=== PATIENT | male | born 1945 | race Caucasian/White ===

== ENCOUNTER → 2017-04-03 | Outpatient (CLI) | payer OTHER ==
[2017-04-03 11:42] LABS: INR 1.01; PROTHROMBIN TIME 13.4 SECONDS (12.4-14.5)
[2017-04-03 11:43] LABS: PARTIAL THROMBOPLASTIN TIME 28.6 SECONDS (26.8-37.9)
== END ==
LOC: M LAB 10:45
DX: D37.030 Neoplasm of uncertain behavior of the parotid salivary glands (principal); Z79.899 Other long term (current) drug therapy
CPT/HCPCS: 85610

== ENCOUNTER → 2017-04-10 | Outpatient (CLI) | payer OTHER ==
[~2017-04-10] MED LIST: LIDOCAINE 1% MDV 20ML VIAL As Ordered
== END ==
LOC: M RADPRO 10:55
DX: D37.030 Neoplasm of uncertain behavior of the parotid salivary glands (principal); Z79.899 Other long term (current) drug therapy
CPT/HCPCS: 10022

== ENCOUNTER 2017-11-30 05:36 | Day surgery (SDC) | payer OTHER ==
[2017-11-30] MEDS: LR 1,000 ML IV (06:40)
[2017-11-30] MEDS ORDERED: LIDOCAINE 2% INJ 100 MG/5 ML SDV (FOR ANES.) As Ordered ×2 (07:11→09:32)
[2017-11-30] MEDS ORDERED: MIDAZOLAM INJ 2 MG/2 ML VIAL (J2250) As Ordered (07:11)
[2017-11-30] MEDS ORDERED: PROPOFOL 200 MG/20 ML VIAL As Ordered (07:11)
[2017-11-30] MEDS ORDERED: ROCURONIUM BROMIDE 50 MG/5 ML VIAL As Ordered (07:11)
[2017-11-30] MEDS ORDERED: fentaNYL 250 MCG/5 ML INJECTION (J3010) As Ordered (07:11)
[2017-11-30] MEDS: dexameTHASONE 4 MG/ML 1ML VIAL (J1100) IV (07:45)
[2017-11-30] MEDS ORDERED: GLYCOPYRROLATE INJ 0.2 MG/ML 2 ML VIAL As Ordered ×2 (07:54→09:54)
[2017-11-30] MEDS ORDERED: ePHEDrine SULFATE 25 MG/5 ML(5MG/ML) SYRINGE As Ordered (07:56)
[2017-11-30] MEDS ORDERED: PHENYLephrine HCL 500 MCG/5 ML (100MCG/ML) SYRINGE (J2370) As Ordered ×2 (07:56→09:48)
[2017-11-30] MEDS ORDERED: LABETALOL HCL 100 MG/20 ML VIAL As Ordered (09:00)
[2017-11-30] MEDS ORDERED: NEOSTIGMINE 10 MG/10 ML VIAL (J2710) As Ordered ×2 (09:10→09:11)
[2017-11-30] MEDS ORDERED: ONDANSETRON 4MG/2ML VIAL (J2405) As Ordered (09:10)
[2017-11-30] MEDS: LIDOCAINE W/EPINEPHRINE 1% 20ML VIAL As Ordered (10:01)
[2017-11-30] MEDS: BACITRACIN OINT 30GM As Ordered (10:12)
[2017-11-30] MEDS ORDERED: LR 1,000 ML IV ×2 (11:30→11:45)
[2017-11-30] MEDS ORDERED: fentaNYL 100 MCG/2 ML INJECTION (J3010) IV (11:45)
[2017-11-30] MEDS ORDERED: METOCLOPRAMIDE INJ 10MG/2ML VIAL (J2765) IV (11:45)
[2017-11-30] MEDS ORDERED: PERCOCET 5MG/325MG TAB PO (11:45)
[2017-11-30] MEDS ORDERED: ONDANSETRON 4MG/2ML VIAL (J2405) IV (11:45)
[2017-11-30] MEDS ORDERED: ACETAMINOPHEN TAB 650MG DOSE (2X325MG) As Ordered (13:22)
[2017-11-30] MEDS: ACETAMINOPHEN TAB 650MG DOSE (2X325MG) PO (13:28)
[2017-11-30] MEDS ORDERED: BACITRACIN OINT 30GM TOP (16:00)
== END 2017-11-30 13:46 | disposition home or self-care (01) ==
LOC: M SDC 05:36
DX: D11.0 Benign neoplasm of parotid gland (principal); J43.9 Emphysema, unspecified; E78.00 Pure hypercholesterolemia, unspecified; F41.9 Anxiety disorder, unspecified; F32.9 Major depressive disorder, single episode, unspecified; I73.9 Peripheral vascular disease, unspecified; K21.9 Gastro-esophageal reflux disease without esophagitis; R06.83 Snoring; M12.9 Arthropathy, unspecified; F25.9 Schizoaffective disorder, unspecified; Z79.899 Other long term (current) drug therapy; Z72.0 Tobacco use; Z92.3 Personal history of irradiation; Z85.46 Personal history of malignant neoplasm of prostate
CPT/HCPCS: 42420